=== PATIENT | male | born 1960 | race Caucasian/White ===

== ENCOUNTER → 2023-10-11 12:13 | Outpatient (REF) | payer BC, SELFPAY | LOC: DHCBC/DCA 12:13 | PROVIDERS: ATTENDING PHYSICIAN Nurse Practitioner; FAMILY PHYSICIAN Internal Medicine | DX: E78.2 Mixed hyperlipidemia (principal); I25.10 Atherosclerotic heart disease of native coronary artery without angina pectoris; R06.09 Other forms of dyspnea; I10 Essential (primary) hypertension | CPT/HCPCS: 78452; 93017; A9500 ==

== ENCOUNTER → 2024-04-25 14:23 | Outpatient (REF) | payer BC, SELFPAY | LOC: RAD 14:23 | PROVIDERS: ATTENDING PHYSICIAN Internal Medicine | DX: M25.511 Pain in right shoulder (principal); M25.551 Pain in right hip | CPT/HCPCS: 73030; 73502 ==